=== PATIENT | male | born 1955 | race Caucasian/White ===

== ENCOUNTER 2017-08-29 09:30 | Inpatient (IN) | payer OTHER ==
[2017-09-01] MEDS ORDERED: MECLIZINE 25 MG TABLET PO ONE (06:00)
[2017-09-01] MEDS ORDERED: VANCOMYCIN HCL 1,000 MG in DEXTROSE 5 % IN WATER 250 ML IVPB ONE ×2 (06:00)
[2017-09-01] MEDS ORDERED: FAMOTIDINE 20MG TABLET PO ONE (06:00)
[2017-09-01] MEDS ORDERED: ACETAMINOPHEN 1,000 MG/100 ML BTL IV ONE (06:00)
[2017-09-01] MEDS ORDERED: METOCLOPRAMIDE 10 MG TABLET PO ONE (06:00)
[2017-09-01] MEDS ORDERED: CELECOXIB 100 MG CAPSULE PO ONE (06:00)
[2017-09-01] MEDS ORDERED: NALOXONE 0.4 MG/1 ML VIAL IVP PRN (08:33)
[2017-09-01] MEDS ORDERED: ZOLPIDEM TARTRATE 5 MG TABLET PO PRN (08:33)
[2017-09-01] MEDS ORDERED: KETOROLAC 30 MG/ML VIAL IVP PRN ×2 (08:33)
[2017-09-01] MEDS ORDERED: HYDROCODONE/APAP 5/325MG TABLET PO PRN ×2 (08:33)
[2017-09-01] MEDS ORDERED: ACETAMINOPHEN 325 MG TAB PO PRN (08:33)
[2017-09-01] MEDS ORDERED: ACETAMINOPHEN W/ CODEINE 300MG/60MG TABLET PO PRN ×2 (08:33)
[2017-09-01] MEDS ORDERED: MAGNESIUM HYDROXIDE 30 ML UDC PO PRN (08:33)
[2017-09-01] MEDS ORDERED: AL HYDROX/MAG HYDROX 30ML UD PO PRN (08:33)
[2017-09-01] MEDS ORDERED: ACETAMINOPHEN W/ CODEINE 300MG/30MG TABLET PO PRN ×2 (08:33)
[2017-09-01] MEDS ORDERED: METOCLOPRAMIDE HCL 10 MG/2 ML VIAL IVP PRN (08:33)
[2017-09-01] MEDS ORDERED: ONDANSETRON HCL IV 4 MG/2 ML VIAL IVP PRN (08:33)
[2017-09-01] MEDS ORDERED: DIPHENHYDRAMINE HCL 25 MG CAPSULE PO PRN (08:33)
[2017-09-01] MEDS ORDERED: HYDROMORPHONE HCL 2 MG/ML VIAL IM PRN ×2 (08:33)
[2017-09-01] MEDS ORDERED: HYDROCODONE/APAP 7.5/325MG TABLET PO PRN (08:33)
[2017-09-01] MEDS ORDERED: PROMETHAZINE HCL 12.5 MG in 0.9 % SODIUM CHLORIDE 100ML 50 ML IVPB PRN (08:33)
[2017-09-01] MEDS ORDERED: BISACODYL 10 MG SUPP RC PRN (08:33)
[2017-09-01] MEDS ORDERED: TRAMADOL HCL 50 MG TABLET PO PRN ×2 (08:33)
[2017-09-01 08:50] LABS: ABO GROUP O; ANTIBODY SCREEN NEGATIVE (NEGATIVE); RH TYPE NEGATIVE
[2017-09-01] MEDS: DOCUSATE SODIUM 100 MG CAPSULE PO SCH ×2 (09:59→22:09)
[2017-09-01] MEDS ORDERED: DEXTROSE 5 % AND 0.9 % NACL 1,000 ML IV PRN (13:00)
[2017-09-01] MEDS ORDERED: KETOROLAC 30 MG/ML VIAL IVP ONE (13:34)
[2017-09-01] MEDS ORDERED: VANCOMYCIN HCL 1 GM VIAL IVPB ONE ×2 (13:38→14:46)
[2017-09-01] MEDS ORDERED: BUPIVACAINE 0.5% W/EPI MPF 30 ML VIAL IVP ONE ×2 (13:38→14:46)
[2017-09-01] MEDS ORDERED: TRANEXAMIC ACID 1,000 MG/10 ML ML IV ONE (13:38)
[2017-09-01] MEDS ORDERED: BUPIVACAINE LIPOSOME 266MG/20ML VIAL IV ONE (13:38)
--- NOTE | 2017-09-01 16:31 | Rehab Evaluation ---
Patient Information - Patient Information Diagnosis: R hip OA. Ordered Treatment: PT Evaluate and Treat Status: Initial Evaluation Surgery: Yes (THR) Date of Surgery: 09/01/17 Past Medical/Surgical Hx: PAST MEDICAL/SURGICAL HISTORY Past Surgical History tonsils kidney stone PMH - Respiratory Hx Respiratory Disorders Yes Hx Bronchitis Yes: in past Hx Pneumonia Yes: 8 yrs ago possibly PMH - Cardiovascular Hx Cardiovascular Disorders Yes Hx Hypertension Yes: on meds good control Exercise Tolerance Fair Hx Transient Ischemic Attacks Yes: possibly 4 years ago decreased peripheral (TIA) vision Comment: due to hip pain PMH - Neuro Hx Neurological Disorders Yes Hx Transient Ischemic Attacks Yes: possibly 4 years ago decreased peripheral (TIA) vision PMH - GI Hx Gastrointestinal Disorders No PMH - Hx Genitourinary Disorders Yes Hx Kidney Stones Yes PMH - Endocrine Hx Endocrine Disorders Yes Hx Diabetes Yes: dx'd early Hx Thyroid Disease Yes Hx of IDDM Yes Comment: FBS 140 this am PMH - Musculoskeletal Hx Musculoskeletal Disorders Yes Hx Arthritis Yes: right hip Hx Gout Yes PMH - Psych Hx Psychiatric Problems No PMH - Hematology/Oncology Hx Hematology/Oncology No Disorders Comment: nose bleed while on ASA Premorbid Status: Detail (The patient was previously independent with all mobility prior to surgery.) Social History: Detail (The patient lives alone in a 2 story house with a ramp at front enterance and 2 steps with one railing at the back enterance. The patient will be living on the first floor primarily. The patient's bathroom is equipped wtih a tub/shower combination with a shower bench, standard toilet seat with a riser seat. The patient has a walker with wheels, wheelchair, stapler hand, long handled sponge and shoe horn.) Precautions: [place], Fall, Other (THR precautions.) - Time With Patient Total Time Spent With Patient (Min): 30 Treatment Procedures: Detail (Initial Evaluation) Subjective Information - Subjective Information Per Patient (The patient had no complaints of pain.) Objective Data - Mental Status Patient Orientation: Oriented x3 - Visual Perception Appears within normal limits for therapeutic activities - ROM Not within normal limits (The patient's R hip is within total hip precautions. All other LE hip AROM is WNL.) - Strength/Tone Not within normal limits (The patient's R LE strength was not tested secondary to s/p surgery, however patient's strength is functional ie: patient is able to lift LE out of bed. The patient's R LE strength is generally 4+ to 5/5.) - Bed Mobility Independent (The patient was independent with supine to sit and scooting up in bed correctly following THR precautions.) - Transfers Independent (The patient was independent with sit to and from stand transfer.) - Balance Balance Sitting: Good Balance Standing: Good - Sensation Intact - Gait Detail (The patient ambulated 48 feet x 1 with wheeled walker, WBAT on the R LE with CG for safety due to occasional unsteadiness with ambulation.) Therapy Assessment - Therapy Assessment Detail (The patient was independent with bed mobilty ,transfers and required CG for safety with ambulation. Feel the patient will progress well with mobility.) Patient Education - Patient Education Teaching Topic: Exercise/Activity (The patient completed the following THR exercises: gluteal sets, ankle pumps, hip abduction supine, heel slides, quad sets, hamstring sets.), Precautions (The patient was able to verbalize THR precautions with occasional verbal reminders.) Response: Return Demonstration Teaching Method: Discussion, Handout Teaching Recipient: Patient Barriers To Learning: None Problem List - Problem List Physical Therapy Problem List: Detail (1) Decreased R LE strength as to be expected following surgery. 2) Non ambulatory on stairs. 3) CG with ambulation due to unsteadiness.) Goals - Goals Physical Therapy Goals: 1) The patient will be independent with ambulation with wheeled walker household distance WBAT on the R LE. 2) The patient will ambulate on stairs with supervision of safety. 3) The patient will consistently remember and follow THR precautions. Prognosis - Prognosis Good Plan - Plan Physical Therapy Plan: PT 1-2 times a day for gait training on levels and stairs until all inpatient goas have been met.
[2017-09-01] MEDS: HYDROCODONE/APAP 7.5/325MG TABLET PO PRN ×2 (16:43→22:13)
[2017-09-01] MEDS: FERROUS SULFATE 325 MG TAB PO SCH ×2 (18:32→22:07)
[2017-09-01] MEDS ORDERED: AMLODIPINE BESYLATE 5MG TAB PO SCH (22:00)
[2017-09-01] MEDS: VANCOMYCIN HCL 1,000 MG in DEXTROSE 5 % IN WATER 250 ML IVPB SCH ×2 (22:14)
[2017-09-02 06:39] LABS: HEMOGLOBIN 10.6 gm/dl (14.0-18.0)
[2017-09-02] MEDS ORDERED: LEVOTHYROXINE SOD 112 MCG TAB PO SCH (07:00)
[2017-09-02] MEDS ORDERED: LEVOTHYROXINE SODIUM 25 MCG TABLET PO SCH (07:00)
--- NOTE | 2017-09-02 07:27 | RADIOLOGY REPORT ---
EXAM: RIGHT HIP HISTORY: POSTOP RIGHT JESSICA. TECHNIQUE: AP views of the right hip were obtained. Comparison: None. FINDINGS: The patient is postop right JESSICA. The components appear in good position in the frontal projection with no dislocation evident. Some air is seen in the soft tissues which is presumably postoperative in nature. IMPRESSION: POSTOP RIGHT JESSICA. THE COMPONENTS APPEAR IN GOOD POSITION IN THE AP PROJECTION. JOB NUMBER: [id number] MTDD
[2017-09-02] MEDS: HYDROCODONE/APAP 7.5/325MG TABLET PO PRN (07:39)
[2017-09-02] MEDS ORDERED: METFORMIN 500 MG TABLET PO SCH (08:00)
[2017-09-02] MEDS: VANCOMYCIN HCL 1,000 MG in DEXTROSE 5 % IN WATER 250 ML IVPB SCH ×2 (08:30)
[2017-09-02] MEDS ORDERED: CELECOXIB 100 MG CAPSULE PO SCH (10:00)
[2017-09-02] MEDS ORDERED: RIVAROXABAN 10 MG TABLET PO SCH (10:00)
[2017-09-02] MEDS: DOCUSATE SODIUM 100 MG CAPSULE PO SCH (10:07)
[2017-09-02] MEDS: FERROUS SULFATE 325 MG TAB PO SCH (10:07)
--- NOTE | 2017-09-02 10:19 | Physical Therapy Tx Note ---
Physical Therapy Tx Note - Treatment Note Tolerated: Good Total Time Spent With Patient: 25 Physical Therapy Tx Note: Detail (The patient was in bed when PT arrived. The patient ambulated with 2 wheeled walker independently WBAT on the R LE to bathroom and in the hallway 136 feet. The patient ambulated with supervision for safety on 3 stairs with one railing and folded walker. The patient completed THR exercises: gluteal sets, quad sets, hamstring sets, hip abduction , heel slides, ankle pumps all x 10 reps.) Physical Therapy Problem List: Detail (1) Decreased R LE strength as to be expected following surgery. 2) Non ambulatory on stairs. 3) CG with ambulation due to unsteadiness.) Physical Therapy Goals: GOALS MET: 1) The patient will be independent with ambulation with wheeled walker household distance WBAT on the R LE. 2) The patient will ambulate on stairs with supervision of safety. 3) The patient will consistently remember and follow THR precautions. Physical Therapy Plan: The patient has met all inpatient PT goals and is discharged from inpatient PT. The patient is to receive Home PT.
--- NOTE | 2017-09-02 11:02 | Rehab Evaluation ---
Patient Information - Patient Information Diagnosis: R hip OA. Ordered Treatment: OT Evaluate and Treat Status: Initial Evaluation Surgery: Yes (THR) Date of Surgery: 09/01/17 Past Medical/Surgical Hx: PAST MEDICAL/SURGICAL HISTORY Past Surgical History tonsils kidney stone PMH - Respiratory Hx Respiratory Disorders Yes Hx Bronchitis Yes: in past Hx Pneumonia Yes: 8 yrs ago possibly PMH - Cardiovascular Hx Cardiovascular Disorders Yes Hx Hypertension Yes: on meds good control Exercise Tolerance Fair Hx Transient Ischemic Attacks Yes: possibly 4 years ago decreased peripheral (TIA) vision Comment: due to hip pain PMH - Neuro Hx Neurological Disorders Yes Hx Transient Ischemic Attacks Yes: possibly 4 years ago decreased peripheral (TIA) vision PMH - GI Hx Gastrointestinal Disorders No PMH - Hx Genitourinary Disorders Yes Hx Kidney Stones Yes PMH - Endocrine Hx Endocrine Disorders Yes Hx Diabetes Yes: dx'd early Hx Thyroid Disease Yes Hx of IDDM Yes Comment: FBS 140 this am PMH - Musculoskeletal Hx Musculoskeletal Disorders Yes Hx Arthritis Yes: right hip Hx Gout Yes PMH - Psych Hx Psychiatric Problems No PMH - Hematology/Oncology Hx Hematology/Oncology No Disorders Comment: nose bleed while on ASA Premorbid Status: Detail (The patient was previously independent with all mobility and I/ADLs prior to surgery.) Social History: Detail (The patient lives alone in a 2 story house with a ramp at the front enterance and 2 steps with one railing at the back enterance. The patient will be living on the first floor primarily. The patient's bathroom is equipped with a tub/shower combination with a shower bench (all 4 legs in shower ), standard toilet seat with a riser seat (on the way), and grab bars throughout bathroom including in tub/shower. The patient has a 2WW, wheelchair, microbiology lab technician, long handled sponge, and shoe horn.) Precautions: [place], Fall, Other (Total Hip precautions.) - Time With Patient Total Time Spent With Patient (Min): 25 Treatment Procedures: Detail (Initial Evaluation: Low Complexity, completed by OT student Sneha Cee under direct supervision of OTRL. Pt. was left supine in bed with call light, cell phone, and bedside table within reach, and declined needing anything at this time.) Subjective Information - Subjective Information Per Patient (Pt stated he is right hand dominant, will be receiving home health upon returning home, and that his work involves social security for disabilities. Pt also reported that he "doesn't own socks".) Objective Data - Pain Pain Present: Yes Pain Scale Used: Numeric (1 - 10) (1/10 at rest in R hip) - Mental Status Patient Orientation: Oriented x3 - Visual Perception Appears within normal limits for therapeutic activities - ROM Within normal limits (BUE AROM all planes WNL) - Strength/Tone Within normal limits (MMT- BUE in all planes 5/5 except L shoulder flexion 4+/5) - Coordination Appears within normal limits for therapeutic activities - Bed Mobility Independent (Supine<>SS EOB Indp. from flat surface and no use of hand rails but pt. Ind. initiated modified techniques to adhere to hip precautions.) - Transfers Independent (SS EOB<>standing with 2WW Indp. with proper hand placement and adherence to hip precautions.) - Balance Balance Sitting: Good Balance Standing: Fair (2WW for support) - Sensation Intact (Light touch intact for BUE fingertips on volar surface.) - ADL's/IADL's Detail (Pt verbalize understanding of hip precautions without any VC. Educated patient in adaptive LB dressing techniques and use of AE for safety and independence. Pt demonstrated and verbalized understanding of adaptive LB dressing techniques. Pt donned shorts while safely and independently utilizing adaptive LB dressing techniques to adhere to hip precautions. Pt donned pullover t-shirt Indp. in SS EOB. Pt verbalized understanding on how to lexi/ doff shoes with AE (microbiology lab technician, shoe horn). Pt denied education/training in sock aid, as he stated he "doesn't own socks." Educated pt on wearing gripper socks or tennis shoes when out of bed in hospital for safety. Pt plans on sponge bathing until home health services is able to assist with bathing.) Therapy Assessment - Therapy Assessment Detail (ADL tasks completed safely and indpendently and no longer requires inpatient skilled OT services at this time. Pt will be receiving home health care upon returning home for intial recovery. Pt has a good support system at home, stating "lots of people" and "2 nurses and a therapist" to assist if needed. Pt. has hip kit equipment and a good environmental set-up at home.) Patient Education - Patient Education Teaching Topic: Equipment Use, Other (Adaptive LB dressing techniques) Response: Return Demonstration, Verbalize Understanding Teaching Method: Discussion, Demonstration Teaching Recipient: Patient Barriers To Learning: None Problem List - Problem List Physical Therapy Problem List: Detail (1) Decreased R LE strength as to be expected following surgery. 2) Non ambulatory on stairs. 3) CG with ambulation due to unsteadiness.) Goals - Goals Physical Therapy Goals: GOALS MET: 1) The patient will be independent with ambulation with wheeled walker household distance WBAT on the R LE. 2) The patient will ambulate on stairs with supervision of safety. 3) The patient will consistently remember and follow THR precautions. Prognosis - Prognosis Good (Pending pt adheres to hip precautions) Plan - Plan Physical Therapy Plan: The patient has met all inpatient PT goals and is discharged from inpatient PT. The patient is to receive Home PT. Occupational Therapy Plan: D/c pt from skilled inpatient OT services at this time. Pt reported having no questions or concerns regarding his return home.
[2017-09-02] MEDS ORDERED: VANCOMYCIN HCL 500 MG in 0.9 % SODIUM CHLORIDE 100ML 100 ML IV SCH (13:00)
[2017-09-02] MEDS ORDERED: FENTANYL PF 100MCG/2ML VIAL IV ONE (15:49)
[2017-09-02] MEDS ORDERED: PROPOFOL 10 MG/ML VIAL IV ONE (15:49)
[2017-09-02] MEDS ORDERED: ONDANSETRON HCL IV 4 MG/2 ML VIAL IVP ONE (15:49)
[2017-09-02] MEDS ORDERED: MIDAZOLAM HCL 2MG/2ML VIAL IV ONE (15:49)
[2017-09-02] MEDS ORDERED: *PACU ONLY* KETAMINE HCL 10 MG/ML (20ML) VIAL IV ONE (15:49)
--- NOTE | 2017-09-02 21:07 | Operative Note ---
DATE OF SURGERY: 09/01/2017 PREOPERATIVE DIAGNOSIS: End-stage right hip arthrosis. POSTOPERATIVE DIAGNOSIS: End-stage right hip arthrosis. OPERATION: Right total hip arthroplasty. SURGEON: Jeremy Fish M.D. ANESTHESIA: Spinal. TRAE Mckoy. COMPLICATIONS: None. BLOOD LOSS: 200 mL. OPERATIVE FINDINGS: Severe [id number] hip arthrosis with lateralization of the joint. Severe deformity of the femoral head, almost autofused. COMPONENTS PLACED: 1 gram Vancomycin Powder and a [employer] Synergy total hip arthroplasty system size 15 high offset with a 32 +0 mm Oxinium femoral head component, a 54 mm three-hole reflection acetabular shell component with two screw caps, a centrally threaded screw cap, and one acetabular screw and a 35 degree high-crosslinked polyethylene liner. INDICATIONS FOR OPERATION: This is a 62-year-old male who has had severe hip arthrosis with persistent pain and dysfunction in his hip for several years. He failed nonoperative treatment and is scheduled for replacement. I explained the risks and benefits to him in detail for diagnosis and procedures including but not limited to; infection, nerve injury, vessel injury, persistent pain, persistent numbness and tingling in his hip, periprosthetic fracture, need for resection arthroplasty should the components become infected or loosened, nerve injury, vessel injury, blood clot, need for anticoagulation to prevent blood clots and risks associated with these medications and need for further procedures and all of his questions were answered. Rehab and course were outlined and he agreed to proceed. PROCEDURE: The patient was brought to the O.R. and placed in the left lateral decubitus position. His right hip and lower extremity were prepped and draped in a sterile fashion, prepped again with ChloraPrep after it was draped. Intraoperative time-out was performed. Next, the posterior approach was marked over the hip. The hip was infiltrated with 0.5% Marcaine with Epinephrine. Skin and subcutaneous tissues were dissected down. Gluteal fascia was split longitudinally and the subgluteal plane was bluntly dissected. A self-retainer was brought in. The short external rotators were basically atrophied away and were absent. I incised the capsule superiorly and inferiorly and released it proximally and distally and dislocated the femoral head. It was severely deformed, massive osteophytes with lateral subluxation. We then resected the head about 1.5 cm above the lesser trochanter and then inserted the boxed osteotome. We inserted the reamers, by hand first and then reamed them with power to 15, which had a good fit and stopped there. We broached a 13. We had 15 degrees of anteversion and calcar planed then to 14 , then to 15 and had a good fit. Attention was turned to the acetabulum. We released the capsule anteriorly, placed an inferior acetabular retractor and another femoral retractor anteriorly and had good exposure. We then resected the labrum around the periphery and capsule. Next, we had to medialize significantly. It was a very lateralized hip. Using a 44 mm reamer, we medialized to the medial teardrop wall and then, working up in 1 mm increments in 45 degrees inclination and 20 degrees of anteversion until we reamed up to a size 53. We stopped there, trialed a 54 and had good fit. It was down to the medial wall and that's the size we used. Next, we changed gloves and brought in a clean sheet. We copiously irrigated bony surfaces and impacted down the real three-hole acetabular shell with the helicopter guide in 45 degrees of inclination and 20 degrees of anteversion. We verified it was down medially. We then drilled the posterior central superior quadrant screw hole, measured for a 40 mm screw and inserted that screw. It had a good purchase there. Next, we placed a trial liner. We then placed the trial femoral stem and did a trial reduction. The best combination for range of motion, stability, and leg lengths with a high offset 32 +0 mm femoral head component. This allowed for symmetric leg lengths. This left her good abductor tensioning, flexion to 90, internal rotation to 70 before the hip dislocated, and stability with extension in external rotation. These were the size we used. Next, we removed all trial components, irrigated copiously again with pulsatile antibiotic solution and inserted the two screw caps and the centrally threaded screw cap and then impacted down the real 35 degree hooded liner with the watts in the posterior superior quadrant. We irrigated the femoral canal and placed some antibiotic powder in the femoral canal and then impacted down the real femoral stem, again in 15 degrees of anteversion until the bead line was flush with the medial calcar. We cleaned and dried the trunnion, impacted down the femoral head. We re- reduced the hip. Final range of motion and stability was the same. We irrigated copiously. Next, we placed Vancomycin Powder deep in the joint and around the periphery here and then injected the deep tissues and periosteum with 0.5% Marcaine with Epinephrine, Tranexamic Acid, and Exparel mixture. There were no short external rotators to close. Next, we closed the gluteal fascia with #2 Quill suture securely, placed some antibiotic here. Previously irrigated. We then closed the skin with 2-0 Vicryl and injected the remainder of our mixture into the subcutaneous tissues. Sterile dressing applied with ActiCoat. He'll have his dressing changed tomorrow to RAMA dressing prior to discharge home. He will follow-up in two weeks, have home therapy nurse. The patient tolerated the procedure well. No intraoperative complications. All sponge, needle and blade counts were correct. Recovery stable, neurovascularly intact. cc: Dr. Francisco Salomon, [facility] JOB NUMBER: [id number] MTDD
== END 2017-09-02 15:50 | disposition home health service (06) | DRG 470 ==
LOC: EDSTATUS 09:30 → MEDSURG 09-01 07:46
PROVIDERS: ADMIT Orthopaedic Surgery; ATTEND Orthopaedic Surgery
PROC: 0SR906A Replacement of Right Hip Joint with Oxidized Zirconium on Polyethylene Synthetic Substitute, Uncemented, Open Approach (ICD-10-PCS; principal; 2017-09-01 10:00)
DX: M16.11 Unilateral primary osteoarthritis, right hip (principal); I10 Essential (primary) hypertension; E11.9 Type 2 diabetes mellitus without complications; Z79.84 Long term (current) use of oral hypoglycemic drugs; M10.9 Gout, unspecified
CPT/HCPCS: 36416; 82948; 85014; 85018; 86850; 86900; 86901; 97110; 97530; J1885; J2405; J3370; J7042; J7060